=== PATIENT | male | born 1935 | race Caucasian/White ===

== ENCOUNTER 2023-12-01 11:35 | Emergency (ER) | payer OTHER, MEDICARE ==
[~2023-12-01] VITALS: Ht 182.9 cm; Wt 93.2 kg
[~2023-12-01 11:35] MED LIST: ASPI-1009 PO; BIMA2.5D4 OP; DABI150C PO; LISI-222 PO; OMEP-84 PO; SIMV-42 PO; SOTA80TA73 PO
[2023-12-01 11:36] VITALS: TEMP 98.8
[2023-12-01 12:00] VITALS: BP 151/98; PULSE 65; RESP 16; O2SAT 99
[2023-12-01 12:01] LABS: BILIRUBIN,URINE SMALL (Neg); CLARITY,URINE SLIGHTLY CLOUDY (Clear); COLOR,URINE YELLOW (Yellow); GLUCOSE, URINE NEGATIVE (Neg); KETONES,URINE TRACE mg/dl (Neg); LEUKOCYTE ESTERASE ,URINE NEGATIVE (Neg); NITRITES, URINE NEGATIVE (Neg); OCCULT BLOOD,URINE NEGATIVE (Neg); PH,URINE 6.5 (4.8-8.0); PROTEIN,URINE NEGATIVE (Neg)
[2023-12-01 12:15] LABS: UA COLLECTION TYPE FOLEY CATH
[2023-12-01 12:16] LABS: HYALINE CASTS >30 /LPF (NEGATIVE); MUCUS STRANDS MANY /LPF (Neg)
[2023-12-01 12:17] LABS: BACTERIA,URINE 1+ /HPF (Neg); SQUAMOUS EPITHELIAL CELL,UR FEW /LPF (FEW); TRANSITIONAL EPI CELLS,URINE FEW /HPF
[2023-12-01 12:18] LABS: WBC,URINE 0-4 /HPF (0-4)
[2023-12-01] MEDS: tamsulosin 0.4mg capsule PO STA (12:41)
[2023-12-01] MEDS ORDERED: FLO0.4C PO (12:51)
== END 2023-12-01 13:13 | disposition home or self-care (01) ==
LOC: ER 11:36
DX: N40.1 Benign prostatic hyperplasia with lower urinary tract symptoms (principal); N13.8 Other obstructive and reflux uropathy; E78.00 Pure hypercholesterolemia, unspecified; I10 Essential (primary) hypertension; Z98.890 Other specified postprocedural states; Z72.89 Other problems related to lifestyle; Z88.0 Allergy status to penicillin; Z79.82 Long term (current) use of aspirin; Z79.899 Other long term (current) drug therapy
CPT/HCPCS: 51701; 81001; 99283

== ENCOUNTER 2024-02-22 15:06 | Inpatient (IN) | payer OTHER, MEDICARE ==
[~2024-02-22] VITALS: Ht 180.3 cm; Wt 86.2 kg
[~2024-02-22 15:06] MED LIST changes: +FLO0.4C PO
[2024-02-22 15:31] LABS: BILIRUBIN,URINE NEGATIVE (Neg); CLARITY,URINE CLOUDY (Clear); COLOR,URINE YELLOW (Yellow); GLUCOSE, URINE NEGATIVE (Neg); KETONES,URINE 15 mg/dl (Neg); LEUKOCYTE ESTERASE ,URINE SMALL (Neg); NITRITES, URINE POSITIVE (Neg); OCCULT BLOOD,URINE TRACE-INTACT (Neg); PROTEIN,URINE TRACE mg/dl (Neg); UROBILINOGEN,URINE 0.2 E.U/dL (0.2-1.0)
[2024-02-22 15:38] LABS: UA COLLECTION TYPE FOLEY CATH
[2024-02-22 15:39] LABS: BACTERIA,URINE 4+ /HPF (Neg); RBC,URINE 0-2 /HPF (0-2); SQUAMOUS EPITHELIAL CELL,UR FEW /LPF (FEW); WBC,URINE TNTC /HPF (0-4)
[2024-02-22] MEDS: LORazepam 2 mg/ml vial IV PRN (17:35)
[2024-02-22 23:45] LABS: BASOPHILS # (AUTO) 0.1 X10'3 (0-0.2); BASOPHILS % (AUTO) 0.5 % (0-1); EOSINOPHILS # (AUTO) 0.1 X10'3 (0-0.9); EOSINOPHILS % (AUTO) 0.8 % (0-6); HEMATOCRIT 40.5 % (42.0-52.0); LYMPHOCYTES # (AUTO) 0.7 X10'3 (1.1-4.8); LYMPHOCYTES % (AUTO) 5.3 % (21-51); MEAN CORPUSCULAR HGB CONC 34.6 g/dL (33.0-36.5); MEAN CORPUSCULAR VOLUME 95.3 FL (78-98); MEAN PLATELET VOLUME 6.7 FL (7.4-10.4); MONOCYTES # (AUTO) 1.7 X10'3 (0-0.9); MONOCYTES % (AUTO) 13.3 % (2-12); NEUTROPHILS % (AUTO) 80.1 % (42-75); PLATELET COUNT 324 X10'3 (140-440); RED BLOOD COUNT 4.25 X10'6 (4.70-6.10); RED CELL DISTRIBUTION WIDTH 13.2 % (11.5-14.5); WHITE BLOOD COUNT 12.5 X10'3 (4.5-11.0)
[2024-02-22 23:54] LABS: ALBUMIN 2.8 G/DL (3.4-5.0); ANION GAP 13 (8-16); BLOOD UREA NITROGEN 23 MG/DL (7-18); BUN/CREATININE RATIO 21.9 (10.0-20.0); CALCIUM 8.8 MG/DL (8.5-10.1); CHLORIDE 91 MMOL/L (99-107); CREATININE 1.05 MG/DL (0.60-1.10); GLUCOSE 86 MG/DL (70-104); POTASSIUM 4.3 MMOL/L (3.5-5.1); SODIUM 126 MMOL/L (135-145); TOTAL CARBON DIOXIDE 21.8 MMOL/L (24-32); eCRCL 54 ML/MIN; eGFR 67 ML/MIN
[2024-02-22] MEDS: CefTRIAXone/D5W-Rocephin 1gm 50 ML IV ONE (23:55)
[2024-02-22] MEDS: normal saline 1000ml 1,000 ML IV ONE (23:55)
[2024-02-22] MEDS: normal saline 1000ML IV soln IVB ONE (23:55)
[2024-02-23 00:08] LABS: MAGNESIUM 2.1 MG/DL (1.5-2.4)
[2024-02-23] MEDS ORDERED: HYDROcodone/acetaminophen 5mg/325mg tablet PO PRN (00:25)
[2024-02-23] MEDS ORDERED: acetaminophen 325mg tablet PO PRN ×2 (00:25)
[2024-02-23] MEDS ORDERED: mag hydrox/Alum hydrox/simeth 30ml oral suspension PO PRN (00:25)
[2024-02-23] MEDS ORDERED: ondansetron/PF 4mg/2ml inj IV PRN (00:25)
[2024-02-23] MEDS ORDERED: HYDROcodone/acetaminophen 10/325mg tab PO PRN (00:25)
[2024-02-23] MEDS: morphine 2 MG/ML inj. syringe IV PRN ×2 (04:46→23:39)
[2024-02-23] MEDS ORDERED: NO HOME MEDS (06:48)
[2024-02-23 12:20] VITALS: BP 109/70; PULSE 69; RESP 18; TEMP 98.4; O2SAT 94
[2024-02-23 12:30] VITALS: RESP 18; O2SAT 92
[2024-02-23 20:00] VITALS: RESP 18; O2SAT 96
[2024-02-23 22:00] VITALS: BP 110/68; PULSE 79; RESP 18; TEMP 97.1; O2SAT 98
[2024-02-24 06:00] VITALS: BP 128/74; PULSE 68; RESP 18; TEMP 97.6; O2SAT 73
[2024-02-24 08:00] VITALS: RESP 18; O2SAT 73
[2024-02-24] MEDS: LORazepam 2 mg/ml vial IV PRN (17:54)
[2024-02-24] MEDS: morphine 2 MG/ML inj. syringe IV PRN (17:55)
[2024-02-24 19:00] VITALS: BP 81/54; PULSE 52; RESP 22; TEMP 97; O2SAT 94
[2024-02-25] MEDS: morphine 10mg/ml inj. IV PRN (02:31)
[2024-02-25 06:00] VITALS: BP_SYST 144; BP_SYST 82; BP_DIAS 50; BP_DIAS 59; PULSE 36; PULSE 57; RESP 12; RESP 14; TEMP 97.6; TEMP 98.3; O2SAT 72; O2SAT 96
[2024-02-25 08:44] VITALS: RESP 20
[2024-02-25 18:00] VITALS: BP 96/68; PULSE 98; RESP 20; TEMP 97.7; O2SAT 69
[2024-02-26 06:00] VITALS: BP 87/39; PULSE 102; RESP 20; TEMP 98.3; O2SAT 78
[2024-02-26 09:00] VITALS: RESP 8; O2SAT 72
[2024-02-26 20:00] VITALS: BP 72/43; PULSE 98; RESP 14; TEMP 96.9; O2SAT 70; O2SAT 79
== END 2024-02-27 01:37 | DRG 871 ==
LOC: ER 15:07 → ED HOLD 02-23 00:26 → SUR 3N 02-23 12:00
PROVIDERS: ADMIT Student in an Organized Health Care Education/Training Program; ATTEND Family Medicine
DX: A41.9 Sepsis, unspecified organism (principal); G93.41 Metabolic encephalopathy; J96.01 Acute respiratory failure with hypoxia; I47.20 Ventricular tachycardia, unspecified; E87.1 Hypo-osmolality and hyponatremia; N39.0 Urinary tract infection, site not specified; Z66 Do not resuscitate; I95.9 Hypotension, unspecified; I10 Essential (primary) hypertension; E78.00 Pure hypercholesterolemia, unspecified; I48.0 Paroxysmal atrial fibrillation; Z51.5 Encounter for palliative care; Z95.0 Presence of cardiac pacemaker; Z79.82 Long term (current) use of aspirin; Z79.899 Other long term (current) drug therapy; Z88.0 Allergy status to penicillin
CPT/HCPCS: 36415; 80048; 81001; 83605; 83735; 84145; 85025; 87040; 87077; 87081; 87088; 87186; 93005; 99285; A4615; A5200; G0378; J2060; J2270; J2274